=== PATIENT | female | born 1970 | race Caucasian/White ===

== ENCOUNTER 2017-07-29 09:29 | Emergency (ER) | payer OTHER ==
[2017-07-29 09:38] VITALS: BMI 25.9
[2017-07-29] MEDS ORDERED: SODIUM CHLORIDE 1,000 ML IV STA (09:42)
[2017-07-29] MEDS ORDERED: KETOROLAC TROMETHAMINE 30 MG/1 ML VIAL IVPUSH ONE (09:42)
[2017-07-29] MEDS ORDERED: ALBUTEROL SO4 0.083% IH SOL 2.5 MG/3 ML VIAL.NEB. NEB ONE (09:42)
[2017-07-29] MEDS ORDERED: METOCLOPRAMIDE HCL INJECTION 10 MG/2 ML VIAL IVPB ONE (09:42)
[2017-07-29] MEDS ORDERED: ALBUTEROL SO4 2.5/IPRATROPIUM 0.5 INH SOL 3 ML VIAL.NEB. NEB ONE (09:47)
[2017-07-29] MEDS ORDERED: KETOROLAC TROMETHAMINE 30 MG/1 ML VIAL ONE (09:47)
--- NOTE | 2017-07-29 09:51 | PDOC ---
History of Present Illness - General Chief Complaint: Respiratory Stated Complaint: PERSISTENT COUGH, RT NOSEBLEED Time Seen by Provider: 07/29/17 09:41 History Source: Patient Exam Limitations: No Limitations - History of Present Illness Initial Comments: 07/29/17 09:45 46-year-old female patient with history of breast cancer in remission presents with cough for proximal one half weeks. Patient reports productive cough with greenish in origin that has progressively worsened. Started reporting tactile fevers and nasal congestion. Has this subsequently developed a tension-like headache which is consistent in characteristic with her previous migraines. Patient had seen in urgent care 2 days ago where she was initiated on Augmentin , albuterol and prednisone. She's been taking for last 2 days with minimal relief. Subsequently, patient is also noted to have intermittent right nostril bleeding in the last 2 days. States that she's been attempting use tissues. The patient denies sick contacts but does report that she recently vacationed from the [facility]. She returned one week ago. She is not currently on chemotherapy at this time. Past History - Past Medical History Allergies/Adverse Reactions: Allergies Allergy/AdvReac Type Severity Reaction Status Date / Time No Known Allergies Allergy Verified 07/29/17 09:31 Home Medications: Ambulatory Orders Venlafaxine-Xr [Effexor Xr] 150 mg PO DAILY 08/16/12 Albuterol Sulfate Inhaler - [Ventolin Hfa Inhaler -] 1 - 2 inh PO QID PRN Amoxicillin/Potassium Clav [Augmentin 875-125 Tablet] 1 each PO BID 07/29/17 Azithromycin 250 mg PO DAILY #4 tablet 07/29/17 Gabapentin 300 mg PO TID 07/29/17 Letrozole 2.5 mg PO DAILY 07/29/17 Naproxen [Naprosyn -] 500 mg PO BID PRN #20 tablet 07/29/17 Prednisone [Deltasone -] 20 mg PO BID 07/29/17 Cancer: Yes (breast) - Psycho/Social/Smoking Cessation Hx Anxiety: No Suicidal Ideation: No Smoking Status: No Smoking History: Never smoked Have you smoked in the past 12 months: No Number of Cigarettes Smoked Daily: 0 Information on smoking cessation initiated: No Hx Alcohol Use: No Drug/Substance Use Hx: No Substance Use Type: None Review of Systems - Review of Systems Able to Perform ROS?: Yes Comments:: 07/29/17 09:51 GENERAL/CONSTITUTIONAL: No fever, weakness. HEAD, EYES, EARS, NOSE AND THROAT: No change in vision. No ear pain or discharge. No sore throat. + nose bleed CARDIOVASCULAR: No chest pain or shortness of breath. RESPIRATORY: +cough. No wheezing, or hemoptysis. GASTROINTESTINAL: No abdominal pain, nausea, vomiting, diarrhea, or decreased PO intolerance. GENITOURINARY: No dysuria, frequency, or change in urination. MUSCULOSKELETAL: No joint or muscle swelling or pain. No neck or back pain. SKIN: No rash NEUROLOGIC: No headache, vertigo, loss of consciousness, or change in strength/ sensation. ENDOCRINE: No increased thirst. No abnormal weight change. HEMATOLOGIC/LYMPHATIC: No anemia, easy bleeding, or history of blood clots. ALLERGIC/IMMUNOLOGIC: No hives or skin allergy. *Physical Exam - Vital Signs Last Vital Signs Temp Pulse Resp BP Pulse Ox 98.3 F 109 H 20 123/84 99 07/29/17 09:30 07/29/17 09:30 07/29/17 09:30 07/29/17 09:30 07/29/17 09:30 - Physical Exam Comments: 07/29/17 09:52 GENERAL: Awake, alert, and fully oriented, in no acute distress. Coughing frequently throughout the exam. HEAD: No signs of trauma EYES: PERRLA, EOMI, sclera anicteric, conjunctiva clear ENT: Auricles normal inspection, hearing grossly normal, nares patent, oropharynx clear without exudates. R septum with mild oozing along the region of hessebach plexus NECK: Normal ROM, supple, no lymphadenopathy, JVD, or masses LUNGS: Breath sounds equal, clear to auscultation bilaterally. No wheezes, and no crackles HEART: Regular rate and rhythm, normal S1 and S2, no murmurs, rubs or gallops ABDOMEN: Soft, nontender, normoactive bowel sounds. No guarding, no rebound. No masses EXTREMITIES: Normal range of motion, no edema. No clubbing or cyanosis. No cords, erythema, or tenderness NEUROLOGICAL: Cranial nerves II through XII grossly intact. Normal speech, normal gait SKIN: Warm, Dry, normal turgor, no rashes or lesions noted. ED Treatment Course - LABORATORY CBC & Chemistry Diagram: 07/29/17 10:00 07/29/17 10:00 - RADIOLOGY Radiology Studies Ordered: Category Date Time Status CHEST PA & LAT [RAD] Stat Radiology 07/29/17 09:42 Ordered Medical Decision Making - Medical Decision Making 07/29/17 09:53 Vital Signs Temp Pulse Resp BP Pulse Ox 98.3 F 109 H 20 123/84 99 07/29/17 09:30 07/29/17 09:30 07/29/17 09:30 07/29/17 09:30 07/29/17 09:30 We'll initiate sepsis workup. I suspect the patient may potentially have bronchitis versus pneumonia. Patient's epistaxis is very mild and is secondary to likely the changes in weather from warm to dry and secondary to her upper respiratory infection. We'll obtain a chest x-ray to rule out infiltrates. Blood work. Give IV fluids. Patient is also sustaining a migraine at this time. We'll treat the migraines. Reassess. 07/29/17 11:08 CBC, BMP 07/29/17 10:00 07/29/17 10:00 CMP Sodium 132 mmol/L (136-145) L 07/29/17 10:00 Potassium 3.0 mmol/L (3.5-5.1) L D 07/29/17 10:00 Chloride 98 mmol/L (98-107) 07/29/17 10:00 Carbon Dioxide 28 mmol/L (22-28) 07/29/17 10:00 Anion Gap 6 (8-16) L 07/29/17 10:00 BUN 16 mg/dl (7-18) D 07/29/17 10:00 Creatinine 0.4 mg/dl (0.6-1.3) L 07/29/17 10:00 Creat Clearance w eGFR > 60 (>60) 07/29/17 10:00 Random Glucose 98 mg/dl (74-106) 07/29/17 10:00 Calcium 9.1 mg/dl (8.4-10.2) 07/29/17 10:00 Magnesium 2.0 mg/dL (1.8-2.4) 07/29/17 10:00 Total Bilirubin 0.1 mg/dl (0.2-1.0) L D 07/29/17 10:00 AST 25 U/L (10-42) D 07/29/17 10:00 ALT 17 U/L (10-40) D 07/29/17 10:00 Alkaline Phosphatase 99 U/L (32-92) H 07/29/17 10:00 Total Protein 7.7 g/dl (6.4-8.3) 07/29/17 10:00 Albumin 4.5 g/dl (3.5-5.0) 07/29/17 10:00 Urine Test Results Urine Color Yellow 07/29/17 09:42 Urine Appearance Cloudy 07/29/17 09:42 Urine pH 7.0 (4.5-8) 07/29/17 09:42 Ur Specific [place] 1.010 (1.005-1.025) 07/29/17 09:42 Urine Protein Negative (NEGATIVE) 07/29/17 09:42 Urine Glucose (UA) Negative (NEGATIVE) 07/29/17 09:42 Urine Ketones Negative (NEGATIVE) 07/29/17 09:42 Urine Blood Trace-lysed (NEGATIVE) H 07/29/17 09:42 Urine Nitrite Negative (NEGATIVE) 07/29/17 09:42 Urine Bilirubin Negative (NEGATIVE) 07/29/17 09:42 Ur Leukocyte Esterase Trace (NEGATIVE) H 07/29/17 09:42 Urine RBC 0-3 /hpf (0-3) 07/29/17 09:42 Urine WBC 0-3 (3-5) 07/29/17 09:42 Ur Epithelial Cells Moderate /HPF 07/29/17 09:42 Urine Bacteria Few /hpf (NEGATIVE) 07/29/17 09:42 Urine test negative. The patient's potassium was 3.0. 40 mg oral potassium ordered. Patient reports feeling much better after the treatments. I instructed patient to stop taking the Augmentin and to start taking azithromycin for bronchitis. Azithromycin we' ll cover for atypicals. Patient patient's headache is improved. She like to go home. I suspect that this is bronchitis. Epistaxis resolved after pressure. I treated the patient by human 5 use it at home. Return precautions given. I discussed the physical exam findings, ancillary test results and final diagnoses with the patient. I answered all of the patient's questions. The patient was satisfied with the care received and felt comfortable with the discharge plan and treatment plan. The patient will call their primary care physician within 24 hours to arrange follow-up and will return to the Emergency Department with any new, persistant or worsening symptoms. *DC/Admit/Observation/Transfer Diagnosis at time of Disposition: Bronchitis, Epistaxis Migraine Qualifiers: Migraine type: unspecified Status migrainosus presence: without status migrainosus Intractability: not intractable Qualified Code(s): G43.909 - Migraine, unspecified, not intractable, without status migrainosus - Discharge Dispostion Disposition: HOME Condition at time of disposition: Improved Admit: No - Prescriptions Prescriptions: Azithromycin 250 mg PO DAILY #4 tablet Naproxen [Naprosyn -] 500 mg PO BID PRN #20 tablet PRN Reason: Pain/Headache - Patient Instructions Printed Discharge Instructions: DI for Acute Bronchitis, DI for Migraine, DI for Nosebleed, Nosebleeds (Alternative Therapy) Additional Instructions: Take 2 puffs of albuterol every 4 hours as needed for wheezing. Finish the prednisone that you were prescribed. Stop taking the augmentin and start taking the azithromycin instead. Your next dose is tomorrow and complete it for the next 4 days. Take 500 mg naproxen every 12 hours as needed for pain/fever/headache. Follow up with your doctor. For your nose bleed, please use a humidifier and apply pressure. If you're having uncontrollable bleeding, please return to the ER. Print Language: GERMAN
[2017-07-29 10:07] LABS: URINE BILIRUBIN Negative (NEGATIVE); URINE GLUCOSE (UA) Negative (NEGATIVE); URINE KETONE Negative (NEGATIVE); URINE NITRITE Negative (NEGATIVE); URINE PROTEIN Negative (NEGATIVE); URINE UROBILINOGEN 0.2 (0.2-1.0)
[2017-07-29 10:09] LABS: URINE APPEARANCE CLOUDY; URINE BLOOD Trace-lysed (NEGATIVE); URINE COLOR YELLOW; URINE LEUK ESTERASE TRACE (NEGATIVE)
[2017-07-29 10:11] LABS: BASOPHIL 0.7 % (0-2.0); EOSINOPHIL 0.3 % (0-4.5); MCH 29.2 pg (25.7-33.7); MCHC 34.8 g/dl (32.0-36.0); MEAN PLT VOLUME 8.2 fl (7.5-11.1); NEUTROPHILS 74.1 % (42.8-82.8); PLATELET COUNT 288 K/MM3 (134-434); RDW 13.1 % (11.6-15.6); WHITE BLOOD COUNT 7.9 K/mm3 (4.0-10.8)
[2017-07-29 10:13] LABS: URINE BACTERIA FEW /hpf (NEGATIVE); URINE RBC 0-3 /hpf (0-3); URINE WBC 0-3 (3-5)
[2017-07-29 10:29] LABS: ALBUMIN 4.5 g/dl (3.5-5.0); ALK PHOS 99 U/L (32-92); ANION GAP 6 (8-16); BILIRUBIN,TOTAL 0.1 mg/dl (0.2-1.0); CALCIUM 9.1 mg/dl (8.4-10.2); CO2 28 mmol/L (22-28); CREATININE 0.4 mg/dl (0.6-1.3); GLUCOSE,RANDOM 98 mg/dl (74-106); SGOT/AST 25 U/L (10-42); SGPT/ALT 17 U/L (10-40); TOT PROT 7.7 g/dl (6.4-8.3)
[2017-07-29] MEDS ORDERED: POTASSIUM CHLORIDE TABS 20 MEQ TABLET.ER (FP) PO ONE ×2 (10:47→10:52)
[2017-07-29] MEDS ORDERED: AZITHROMYCIN 250 MG TABLET PO ONE (11:02)
[2017-07-29] MEDS ORDERED: AZITHROMYCIN 250 MG TABLET ONE (11:04)
[2017-07-29 11:12] VITALS: BP 115/65; PULSE 91; TEMP 97.8
== END 2017-07-29 11:18 | disposition home or self-care (01) ==
LOC: FER 09:29
PROC: 3E0F7GC Introduction of Other Therapeutic Substance into Respiratory Tract, Via Natural or Artificial Opening (ICD-10-PCS; principal; 2017-07-29)
PROC: 3E0333Z Introduction of Anti-inflammatory into Peripheral Vein, Percutaneous Approach (ICD-10-PCS; 2017-07-29)
PROC: 3E033GC Introduction of Other Therapeutic Substance into Peripheral Vein, Percutaneous Approach (ICD-10-PCS; 2017-07-29)
PROC: 3E0337Z Introduction of Electrolytic and Water Balance Substance into Peripheral Vein, Percutaneous Approach (ICD-10-PCS; 2017-07-29)
DX: J40 Bronchitis, not specified as acute or chronic (principal); R04.0 Epistaxis; G43.909 Migraine, unspecified, not intractable, without status migrainosus
CPT/HCPCS: 36415; 71020-TC; 80053; 81003; 81015; 83605; 83735; 84703; 85025; 87040; 87086; 99284-25

== ENCOUNTER 2017-07-29 17:00 | Emergency (ER) | payer OTHER ==
[2017-07-29] MEDS ORDERED: SILVER NITRATE 75% APPLIC STCK 1 PKT EACH TP ONE (17:02)
[2017-07-29 17:07] VITALS: BP 107/66; PULSE 91; TEMP 97.8; BMI 25.9
--- NOTE | 2017-07-29 17:41 | PDOC ---
Attending Attestation - Resident Resident Name: IdannaIgnacio - ED Attending Attestation I have performed the following: I have examined & evaluated the patient, The case was reviewed & discussed with the resident, I agree w/resident's findings & plan, Exceptions are as noted - HPI HPI: 07/29/17 17:41 46 year old female returns back to the ED for R sided epistaxis. Stated that it started again at home. Denies lightheadedness, chest tightness, and shortness of breath. - Physicial Exam PE: 07/29/17 17:42 GENERAL: Awake, alert, and fully oriented, in no acute distress. HEAD: No signs of trauma EYES: PERRLA, EOMI, sclera anicteric, conjunctiva clear ENT: Auricles normal inspection, hearing grossly normal, nares patent, oropharynx clear without exudates. Right nostril with oozing along the septum. NECK: Normal ROM, supple, no lymphadenopathy, JVD, or masses EXTREMITIES: Normal range of motion, no edema. No clubbing or cyanosis. No cords, erythema, or tenderness NEUROLOGICAL: Cranial nerves II through XII grossly intact. Normal speech, normal gait SKIN: Warm, Dry, normal turgor, no rashes or lesions noted. - Medical Decision Making 07/29/17 17:42 Vital Signs Temp Pulse Resp BP Pulse Ox 97.8 F 91 H 18 107/66 98 07/29/17 17:00 07/29/17 17:00 07/29/17 17:00 07/29/17 17:00 07/29/17 17:00 Imp: anterior epistaxis We had attempted surgicel which improved but did not resolve. Silver nitrate utilized with improvement of symptoms. Will observe patient and if bleeding stops, will d/c patient home. 07/29/17 18:03 Despite the cautery, patient continues to ooze blood. An anterior rhino rocket was placed into the right nostril. 07/29/17 18:28 Pt continues to ooze. The anterior rhino rocket was removed and an anterior/ posterior 7.5 cm rhino rocket was inserted.
--- NOTE | 2017-07-29 17:41 | PDOC ---
History of Present Illness - General Chief Complaint: Nasal Bleeding Stated Complaint: RT NOSEBLEED Time Seen by Provider: 07/29/17 17:02 - History of Present Illness Initial Comments: 07/29/17 17:37 Patient is a 46 year old female who re-presents to the ED with a nose bleed. The patient presented to the ED earlier today for cough and nose bleed. Work up was negative and the nose bleed resolved with direct pressure. The patient was discharged on azithromycin. She re-presents due to a recurrent nose bleed that has continued for 2 hours. She denies lightheadedness, SOB, cough, chest pain. Past History - Past Medical History Allergies/Adverse Reactions: Allergies Allergy/AdvReac Type Severity Reaction Status Date / Time No Known Allergies Allergy Verified 07/29/17 17:02 Home Medications: Ambulatory Orders Venlafaxine-Xr [Effexor Xr] 150 mg PO DAILY 08/16/12 Albuterol Sulfate Inhaler - [Ventolin Hfa Inhaler -] 1 - 2 inh PO QID PRN Amoxicillin/Potassium Clav [Augmentin 875-125 Tablet] 1 each PO BID 07/29/17 Azithromycin 250 mg PO DAILY #4 tablet 07/29/17 Gabapentin 300 mg PO TID 07/29/17 Letrozole 2.5 mg PO DAILY 07/29/17 Naproxen [Naprosyn -] 500 mg PO BID PRN #20 tablet 07/29/17 Prednisone [Deltasone -] 20 mg PO BID 07/29/17 Cancer: Yes (breast) - Psycho/Social/Smoking Cessation Hx Anxiety: No Suicidal Ideation: No Smoking Status: No Smoking History: Never smoked Have you smoked in the past 12 months: No Number of Cigarettes Smoked Daily: 0 Information on smoking cessation initiated: No Hx Alcohol Use: No Drug/Substance Use Hx: No Substance Use Type: None Review of Systems - Review of Systems Constitutional: No: Chills, Fever HEENTM: Yes: Nose Bleeding. No: Throat Pain Respiratory: No: Cough, Shortness of Breath Cardiac (ROS): No: Chest Pain, Lightheadedness, Syncope ABD/GI: No: Nausea, Vomiting : No: Dysuria Neurological: No: Headache, Numbness, Tingling, Weakness *Physical Exam - Vital Signs Last Vital Signs Temp Pulse Resp BP Pulse Ox 97.8 F 91 H 18 107/66 98 07/29/17 17:00 07/29/17 17:00 07/29/17 17:00 07/29/17 17:00 07/29/17 17:00 - Physical Exam Comments: 07/29/17 17:51 General Appearance: Nourished. No Apparent Distress HEENT: Right nostril bleed with removable clot. No Pharyngeal Erythema, Tonsillar Exudate, Tonsillar Erythema Respiratory/Chest: Lungs Clear, Normal Breath Sounds. No Crackles, Rales, Rhonchi, Wheezing Cardiovascular: Regular Rhythm, Regular Rate. No Murmur, Gallop/S3, Gallop/S4 Gastrointestinal/Abdominal: Normal Bowel Sounds, Soft. No Guarding, Rebound, Tenderness Extremity: Normal Capillary Refill Integumentary: Normal Color, Dry, Warm Neurologic: Fully Oriented, Alert, Normal Mood/Affect, Normal Response Procedures - Additional Procedures Additional Procedures: other (Silver Nitrate caudery of nose bleed. Right nostril. Visualisation obtained and visual cauderization done with silver nitrate.) ED Treatment Course - Medications Given in the ED: ED Medications Discontinued Medications Generic Name Dose Route Start Last Admin Trade Name Freq PRN Reason Stop Dose Admin Silver Nitrate/Potassium Nitrate 1 applic 07/29/17 17:02 07/29/17 17:20 Silver Nitrate 75% Applic Stck TP 07/29/17 17:03 1 applic ONCE ONE Administration Medical Decision Making - Medical Decision Making 07/29/17 17:53 Patient is a 46 year old female who re-presents to the ED with a epitaxisis. Hemostasis attempted with surgicel but unable to be maintained. We performed silver nitrate caudry with good hemostatsis. We will observe for 30-45 min in the ED and reevaluate. 07/29/17 18:08 Hemostasis was not obtained with caudry. We will attempt with an anterior rhino -rocket and reevaluate in 30 min. 07/29/17 19:10 Hemostasis was not obtained with anterior rhino-rocket. We will attempt with a posterior rhino-rocket and reevaluate. 07/29/17 19:30 Hemostasis was not obtained with posterior rhino-rocket. It is likely that the patient will require ENT evaluate which we do not possess here at this facility. We discussed the case with our ENT religion teacher who believes the patient should be evaluated by ENT and should be transferred with a facility with that capability. We discussed the plan with the patient who is accompanied by family and wish to drive themselves to [facility] and we feel comfortable with discharging them at this time to be reevaluated at that facility. The facility is aware and expecting her. The patient is agreeable with the plan. *DC/Admit/Observation/Transfer Diagnosis at time of Disposition: Epistaxis - Discharge Dispostion Disposition: HOME Condition at time of disposition: Stable - Patient Instructions Printed Discharge Instructions: DI for Nosebleed Additional Instructions: From the [place] ED: We had attempted direct nasal pressure, surgicel packing, silver nitrate cautery , anterior rhino rocket with no improvement. A posterior rhino rocket was placed but the epistaxis continues to persist. We had discussed the case with DR. Chappell from [facility] urgent care. Please go directly to the [facility] urgent care for further evaluation and likely ENT evaluation. Please keep the nose packing in place.
--- NOTE | 2017-07-29 19:10 | PDOC ---
*Physical Exam - Vital Signs Last Vital Signs Temp Pulse Resp BP Pulse Ox 97.8 F 91 H 18 107/66 98 07/29/17 17:00 07/29/17 17:00 07/29/17 17:00 07/29/17 17:00 07/29/17 17:00 ED Treatment Course - Medications Given in the ED: ED Medications Discontinued Medications Generic Name Dose Route Start Last Admin Trade Name Gemini PRN Reason Stop Dose Admin Silver Nitrate/Potassium Nitrate 1 applic 07/29/17 17:02 07/29/17 17:20 Silver Nitrate 75% Applic Stck TP 07/29/17 17:03 1 applic ONCE ONE Administration Medical Decision Making - Medical Decision Making 07/29/17 19:06 Pt continues to ooze from the nose despite posterior packing. I had discussed the case with ENT Dr. Lozada. Given the persistent bleed and that this is the weekend (as he would recommend that examination would likely need to occur in the setting of OR), recommended transfer to [facility] with consultation with ENT at the [facility] facility. I had discussed this option with the patient. however, the patient prefers to go to [facility]. She is a patient of [facility]. I had called the [facility] ER attending DR. Chappell who states patient can come to their ER. The bleeding is oozing and not amberly hemorrhaging. However, I feel that the patient is safe for discharge. The patient's family will drive the patient directly to [facility]. Will leave posterior packing in. Will discharge patient and have patient drive to [facility]. *DC/Admit/Observation/Transfer Diagnosis at time of Disposition: Epistaxis - Discharge Dispostion Disposition: HOME Condition at time of disposition: Stable Admit: No - Patient Instructions Printed Discharge Instructions: DI for Nosebleed Additional Instructions: From the [place] ED: We had attempted direct nasal pressure, surgicel packing, silver nitrate cautery , anterior rhino rocket with no improvement. A posterior rhino rocket was placed but the epistaxis continues to persist. We had discussed the case with DR. Chappell from [facility] urgent care. Please go directly to the [facility] urgent care for further evaluation and likely ENT evaluation. Please keep the nose packing in place.
== END 2017-07-29 19:18 | disposition home or self-care (01) ==
LOC: FER 17:00
DX: R04.0 Epistaxis (principal); Z85.3 Personal history of malignant neoplasm of breast
CPT/HCPCS: 99282-25